=== PATIENT | female | born 1955 | race Caucasian/White ===

== ENCOUNTER 2019-05-15 13:56 | Emergency (ER) | payer MEDICARE, BC ==
[~2019-05-15] VITALS: Ht 154.9 cm; Wt 72.6 kg
[2019-05-15] MEDS ORDERED: IBUPROFEN 800 MG TABLET ONE (14:37)
[2019-05-15] MEDS ORDERED: IBUPROFEN 800 MG TABLET PO ONE (14:45)
--- NOTE | 2019-05-15 15:44 | NUR ---
PT ATTEMPTED TO USE CRUTCHES, BUT STATES"IT'S VERY DIFFICULT FOR ME".
--- NOTE | 2019-05-15 15:51 | NUR ---
Patient discharged to home in stable conditon. Written and verbal after care instructions given. Patient verbalizes understanding of instructions.
[2019-05-15 15:55] VITALS: BP 133/80
== END 2019-05-15 15:57 | disposition home or self-care (01) ==
LOC: ER 13:59
DX: S93.402A Sprain of unspecified ligament of left ankle, initial encounter (principal); Z88.5 Allergy status to narcotic agent; X50.1XXA Overexertion from prolonged static or awkward postures, initial encounter; Y93.89 Activity, other specified; Y92.89 Other specified places as the place of occurrence of the external cause; Y99.8 Other external cause status
CPT/HCPCS: 73630; A4663

== ENCOUNTER 2020-10-19 22:54 | Emergency (ER) | payer BC, MEDICARE ==
[~2020-10-19] VITALS: Ht 154.9 cm; Wt 74.8 kg
[2020-10-19] MEDS ORDERED: [UNRECOGNIZED DRUG - REMARK] (23:14)
--- NOTE | 2020-10-19 23:21 | NUR ---
Dr. Smyth at bedside for MSE
[2020-10-19] MEDS ORDERED: HYDROMORPHONE 1 MG/1 ML DISP.SYRIN IM ONE (23:30)
[2020-10-19] MEDS ORDERED: ONDANSETRON 4 MG/2 ML VIAL IM ONE (23:30)
[2020-10-19] MEDS ORDERED: ONDANSETRON 4 MG/2 ML VIAL ONE (23:34)
[2020-10-19] MEDS ORDERED: HYDROMORPHONE 2 MG/1 ML DISP.SYRIN ONE (23:34)
--- NOTE | 2020-10-19 23:59 | NUR ---
Patient discharged to home in stable condition. Written and verbal after care instructions given. Patient verbalizes understanding of instructions. Stressed follow up or return to ER for worsening s/s. Patient ambulated with steady gait. Patients outside of ED to drive patient home. NAD noted
[2020-10-20 00:20] VITALS: BP 152/93
== END 2020-10-19 23:59 | disposition home or self-care (01) ==
LOC: ER 23:05
DX: M47.894 Other spondylosis, thoracic region (principal); Z90.5 Acquired absence of kidney; Z85.528 Personal history of other malignant neoplasm of kidney; Z88.5 Allergy status to narcotic agent
CPT/HCPCS: 72072; 96372 ×2; 99284; J1170; J2405; A4663